=== PATIENT | female | born 1930 | race Caucasian/White ===

== ENCOUNTER 2016-09-10 12:24 | Emergency (ER) | payer OTHER ==
--- NOTE | 2016-09-10 12:24 | EDPHY ---
H & P Time Seen by Provider: 09/10/16 12:21 HPI/ROS: CHIEF COMPLAINT: Chest pain HISTORY OF PRESENT ILLNESS: This patient is an 86-year-old female with history of dementia and atrial fibrillation who presents to the Emergency Department via EMS from [facility] after an episode of chest pain this morning. Per EMS, she was found slumped over, sleeping in her chair during lunch around 1130 today. When she awoke, she complained of chest pain prompting her transfer to the ED. Upon arrival, she reports that she had chest pain during breakfast which persisted through lunch and has since resolved. She denies dizziness, nausea, abdominal pain, or urinary complaints. Family reports that she had a recent UTI about one month ago; she has been refusing to eat and drink since resolution of the infection and was recently placed on antidepressants. Family is in process of transitioning her over to hospice care. REVIEW OF SYSTEMS: Constitutional: No fever, no chills Eyes: No visual changes ENT: No sore throat Respiratory: No cough, no shortness of breath Cardiac: +chest pain resolved Gastrointestinal: No nausea, no vomiting, no abdominal pain Genitourinary: No hematuria, no dysuria Musculoskeletal: No leg pain or swelling Skin: No rash Neurological: No headache, no numbness, no weakness Psychiatric: +depression History and ROS are limited by the patient's dementia. History was partially obtained via EMS and family at bedside. Past Medical/Surgical History: 1. Atrial fibrillation (aspirin, no additional anticoagulation) 2. Depression (Wellbutrin) 3. Dementia 4. Chronic kidney disease Social History: Lives at [facility]. Sister, POA, and niece at bedside. Physical Exam: General Appearance: Somnolent, pale Eyes: Pupils equal and round, no conjunctival pallor or injection ENT, Mouth: Mucous membranes moist Neck: Normal inspection Respiratory: Lungs are clear to auscultation Cardiovascular: Regular rate and rhythm Gastrointestinal: Abdomen is soft and non-tender Neurological: Alert, oriented to place and self, no focal deficits Skin: Warm and dry, no rash Extremities: Nontender, no pedal edema Psychiatric: Depressed mood Constitutional: Initial Vital Signs Temperature (C) 36.4 C 09/10/16 12:24 Heart Rate 50 L 09/10/16 12:24 Respiratory Rate 16 09/10/16 12:24 Blood Pressure 106/71 09/10/16 12:24 O2 Sat (%) 98 09/10/16 12:24 O2 Delivery Mode Nasal Cannula O2 (L/minute) 2 Allergies/Adverse Reactions: No Known Allergies Allergy (Unverified 01/12/14 07:02) Home Medications: Medication Instructions Recorded Apixaban [Eliquis] 5 mg PO BID 02/19/15 Atorvastatin Calcium [Lipitor 20 20 mg PO HS 02/19/15 mg (*)] Ferrous Sulfate [Ferrous Sulf 325 325 mg PO DAILY 02/19/15 MG (*)] Metoprolol Succinate Xr [Toprol Xl 50 mg PO DAILY 02/19/15 25 mg (*)] buPROPion [Wellbutrin 75mg (*)] 75 mg PO BID 02/19/15 Ergocalciferol [Vitamin D2 (*)] 50,000 i.unit PO Q7D #5 cap 02/22/15 Medical Decision Making - Diagnostics EKG Interpretation: EKG interpreted by me reveals normal sinus rhythm, rate 51; first degree AV block; left anterior fascicular block; no ischemic changes. Imaging Results: Imaging Impressions Chest X-Ray 09/10/16 12:36 Impression: No evidence for acute cardiopulmonary abnormality. Chronic findings , as above. Imaging: Discussed imaging studies w/ call center professional Radiologist ED Course/Re-evaluation: 1222: Took EMS report at bedside. No ST/T elevation on 12-lead obtained by EMS. Vitals in transport: BP 119/83, HR 52, O2 Sat 99% on 2L. BGL 133. 85-year-old female with history of dementia and a fib presents following a period of chest pain of unclear duration; it is clear that she was found to be somnolent at 1130 at lunch and complained of chest pain at that time. Upon arrival, she has no complaints. She appears depressed. I discussed with the family plan for basic workup including EKG, labs, and chest x-ray. EKG obtained (as above). Chest x-ray reviewed. Labs obtained. BUN and creatinine are elevated as expected with history of CKD. WBC is within normal range. The patient is mildly anemic; however, hematocrit and hemoglobin levels are both increased from prior visits. Troponin is negative. I discussed results with the patient's family. c/w dehydration, IVF given. Family does not wish to proceed with any additional evaluation at this time. They are in the process of transitioning the patient to hospice care. I have given them return precautions as well as a referral to cardiology to use if they wish. They express understanding of this. The patient will be discharged back to her living facility in stable condition. Differential Diagnosis: Differential diagnosis includes though it is not limited to pneumonia, pneumothorax, pulmonary embolism, aortic dissection, pericarditis, acute coronary syndrome. - Data Points Laboratory Results: Laboratory Results 09/10/16 12:34 09/10/16 12:34 09/10/16 09/10/16 12:34 12:34 WBC 6.28 10^3/uL 10^3/uL (3.80-9.50) RBC 3.77 10^6/uL L 10^6/uL (4.18-5.33) Hgb 11.2 g/dL L g/dL (12.6-16.3) Hct 37.1 % L % (38.0-47.0) MCV 98.4 fL fL (81.5-99.8) MCH 29.7 pg pg (27.9-34.1) MCHC 30.2 g/dL L g/dL (32.4-36.7) RDW 17.5 % H % (11.5-15.2) Plt Count 298 10^3/uL 10^3/uL (150-400) MPV 10.0 fL fL (8.7-11.7) Neut % (Auto) 73.3 % % (39.3-74.2) Lymph % (Auto) 19.1 % % (15.0-45.0) [place] % (Auto) 5.7 % % (4.5-13.0) Eos % (Auto) 0.3 % L % (0.6-7.6) Baso % (Auto) 0.8 % % (0.3-1.7) Nucleat RBC Rel Count 0.0 % % (0.0-0.2) Absolute Neuts (auto) 4.60 10^3/uL 10^3/uL (1.70-6.50) Absolute Lymphs (auto) 1.20 10^3/uL 10^3/uL (1.00-3.00) Absolute Monos (auto) 0.36 10^3/uL 10^3/uL (0.30-0.80) Absolute Eos (auto) 0.02 10^3/uL L 10^3/uL (0.03-0.40) Absolute Basos (auto) 0.05 10^3/uL 10^3/uL (0.02-0.10) Absolute Nucleated RBC 0.00 10^3/uL 10^3/uL (0-0.01) Immature Gran % 0.8 % % (0.0-1.1) Immature Gran # 0.05 10^3/uL 10^3/uL (0.00-0.10) Sodium 134 mEq/L mEq/L (134-144) Potassium 5.3 mEq/L H mEq/L (3.5-5.2) Chloride 106 mEq/L mEq/L (97-110) Carbon Dioxide 19 mEq/l L mEq/l (22-31) Anion Gap 9 mEq/L mEq/L (8-16) BUN 25 mg/dL H mg/dL (7-23) Creatinine 2.0 mg/dL H mg/dL (0.6-1.0) Estimated GFR 24 Glucose 93 mg/dL mg/dL (70-100) Calcium 8.3 mg/dL L mg/dL (8.5-10.4) Troponin I < 0.012 ng/mL ng/mL (0-0.034) Specimen Hemolysis 108 Medications Given: Discontinued Medications Sodium Chloride (Ns) 500 mls @ 1,000 mls/hr IV ONCE ONE PRN Reason: Protocol Stop: 09/10/16 13:31 Last Admin: 09/10/16 13:30 Dose: 500 mls Departure - Departure Disposition: Home, Routine, Self-Care Clinical Impression: Altered mental status Qualifiers: Altered mental status type: somnolence Qualified Code(s): R40.0 - Somnolence Chest pain Qualifiers: Chest pain type: other chest pain Qualified Code(s): R07.89 - Other chest pain Condition: Good Instructions: Chest Pain (ED) Additional Instructions: 1. Stay well hydrated and eat meals as instructed. 2. Should you wish to follow-up with a battery tester and repairer, we have included a referral to a local battery tester and repairer for you. 3. Return to the Emergency Department with recurrence of chest pain, shortness of breath, fever, or for other serious concerns. Referrals: Blois,Lenny M, MD [Medical Doctor] - As per Instructions Report Scribed for: Louisa Avina Report Scribed by: Negar To Date of Report: 09/10/16 Time of Report: 12:21 Physician Review and Approval Statement: 09/10/16 12:21 Portions of this note were transcribed by a medical staff coordinator. I personally performed a history, physical exam, medical decision making, and confirmed accuracy of information the transcribed note.
--- NOTE | 2016-09-10 12:35 | CPEKG ---
Heart Rate: 51 RR Interval: 1176 P-R Interval: 252 QRSD Interval: 100 QT Interval: 468 QTC Interval: 432 P [place]: -41 QRS [place]: -60 T Wave [place]: 69 EKG Severity - ABNORMAL ECG - EKG Impression: SINUS RHYTHM EKG Impression: FIRST DEGREE AV BLOCK EKG Impression: LEFT ANTERIOR FASCICULAR BLOCK Electronically Signed By: Louisa Avina 10-Sep-2016 14:42:09
[2016-09-10 12:46] LABS: % IMMATURE GRANULYOCYTES 0.8 % (0.0-1.1); ABSOLUTE IMMATURE GRANULOCYTES 0.05 10^3/uL (0.00-0.10); ADD DIFF? NO; ADD MORPH? NO; ADD SCAN? NO; ATYPICAL LYMPHOCYTE FLAG 0 (0-99); FRAGMENT RBC FLAG 20 (0-99); HEMATOCRIT 37.1 % (38.0-47.0); HEMOGLOBIN 11.2 g/dL (12.6-16.3); LEFT SHIFT FLG 0 (0-99); LIPEMIA HEMOLYSIS FLAG 80 (0-99); MEAN CELL HEMOGLOBIN 29.7 pg (27.9-34.1); MEAN CELL HEMOGLOBIN CONCENTR. 30.2 g/dL (32.4-36.7); MEAN CELL VOLUME 98.4 fL (81.5-99.8); PLATELET CLUMPS FLAG 0 (0-99); PLATELET COUNT 298 10^3/uL (150-400); RED BLOOD CELL COUNT 3.77 10^6/uL (4.18-5.33); RED CELL DISTRIBUTION WIDTH 17.5 % (11.5-15.2)
[2016-09-10] MEDS ORDERED: NS 500 ML IV ONE (13:02)
[2016-09-10 13:03] LABS: ANION GAP 9 mEq/L (8-16); CALCIUM 8.3 mg/dL (8.5-10.4); CARBON DIOXIDE 19 mEq/l (22-31); CHLORIDE 106 mEq/L (97-110); GLOMERULAR FILTRATION RATE 24; GLUCOSE 93 mg/dL (70-100); POTASSIUM 5.3 mEq/L (3.5-5.2); SODIUM 134 mEq/L (134-144); SPECIMEN HEMOLYSIS 108
[2016-09-10 13:14] LABS: TROPONIN I < 0.012 ng/mL (0-0.034)
[2016-09-10] MEDS ORDERED: D50W 25 GM/50 ML VIAL ONE (16:21)
[2016-09-10 16:51] VITALS: BP 142/68; PULSE 71; RESP 18; TEMP 98.4; O2SAT 92
== END 2016-09-10 16:49 | disposition home or self-care (01) ==
LOC: EDUNIT#
DX: R07.89 Other chest pain (principal); R40.0 Somnolence; N18.9 Chronic kidney disease, unspecified